=== PATIENT | female | born 1995 | race Caucasian/White ===

== ENCOUNTER 2017-01-10 11:46 | Emergency (ER) | payer MEDICAID, OTHER ==
[2017-01-10 11:46] VITALS: BMI 19.7
[2017-01-10 11:52] VITALS: BP 109/70; PULSE 95; RESP 18; TEMP 97.8; O2SAT 100
--- NOTE | 2017-01-10 12:15 | C.PDOC ---
History Of Present Illness Pt c/o a "bump" on her forehead. Denies injury. Time Seen by Provider: 01/10/17 11:56 Chief Complaint (Nursing): Abnormal Skin Integrity History Per: Patient, Family Onset/Duration Of Symptoms: Days (1) Current Symptoms Are (Timing): Still Present Location Of Injury: Anterior: Face (Forehead) Quality Of Symptoms: Painful (mild), Itching (mild), Swollen. denies: Draining Severity: Moderate Additional History Per: Prior Records Past Medical History Reviewed: Historical Data, Nursing Documentation, Vital Signs Vital Signs: Last Vital Signs Temp 97.8 F 01/10/17 11:52 Pulse 95 H 01/10/17 11:52 Resp 18 01/10/17 11:52 BP 109/70 01/10/17 11:52 Pulse Ox 100 01/10/17 11:52 - Medical History PMH: No Chronic Diseases Surgical History: No Surg Hx Family History: States: Unknown Family Hx - Social History Hx Alcohol Use: No Hx Substance Use: No - Immunization History Hx Tetanus Toxoid Vaccination: No Hx Influenza Vaccination: Yes Hx Pneumococcal Vaccination: No Review Of Systems Except As Marked, All Systems Reviewed And Found Negative. Constitutional: Negative for: Fever, Weakness ENT: Negative for: Ear Pain, Nose Discharge, Nose Congestion, Throat Pain Cardiovascular: Negative for: Chest Pain Respiratory: Negative for: Cough, Shortness of Breath Gastrointestinal: Negative for: Nausea, Vomiting, Abdominal Pain Musculoskeletal: Negative for: Neck Pain Neurological: Negative for: Weakness, Numbness, Seizures, Altered Mental Status , Headache, Dizziness Physical Exam - Physical Exam Appears: Non-toxic, No Acute Distress Skin: Normal Color, Warm, Dry Head: Swelling (swollen area on forehead. No erythema or induration. ) Eye(s): bilateral: Normal Inspection, PERRL, EOMI Oral Mucosa: Moist, No Drooling, No Trismus Throat: Normal Neck: Normal ROM, Supple Lymphatic: No Adenopathy Cardiovascular: Rhythm Regular Respiratory: Normal Breath Sounds, No Accessory Muscle Use Extremity: Normal ROM Neurological/Psych: Oriented x3, Normal Speech, Normal Cognition, Normal Cranial Nerves, Normal Motor, Normal Sensation ED Course And Treatment - Laboratory Results Urine POC: Negative O2 Sat by Pulse Oximetry: 100 Pulse Ox Interpretation: Normal Reassessment Condition: Improved Disposition Counseled Patient/Family Regarding: Diagnosis, Need For Followup, Rx Given - Disposition Disposition: HOME/ ROUTINE Disposition Time: 12:15 Condition: STABLE Additional Instructions: Follow up with your doctor in 2-3 days. Return to the ER if you develop redness , fever, drainage, worsening of symptoms or if you have any other concerns. Prescriptions: DiphenhydrAMINE 1% [Benadryl Maximum Strength 1%] 1 applic EXT TID PRN #1 tube PRN Reason: Itching / Pruritus Forms: [facility] (Chinese), General Discharge Instructions - Clinical Impression Clinical Impression: Localized superficial swelling of skin
== END 2017-01-10 12:28 | disposition home or self-care (01) ==
LOC: C.ER 11:46
DX: R22.0 Localized swelling, mass and lump, head (principal)